=== PATIENT | female | born 2000 | race Caucasian/White ===

== ENCOUNTER 2019-07-28 11:02 | Emergency (ER) | payer BC, MEDICAID ==
[2019-07-28] MEDS ORDERED: Silver Sulfadiazine 1% Crm 50 GM Tube TOP ONE (11:03)
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
== END 2019-07-28 11:48 | disposition home or self-care (01) ==
LOC: FB.ED 11:02
DX: T23.151A Burn of first degree of right palm, initial encounter (principal); Z88.2 Allergy status to sulfonamides; X15.8XXA Contact with other hot household appliances, initial encounter
CPT/HCPCS: 16000; 99282; 99283; A9270